=== PATIENT | female | born 1975 | race Caucasian/White ===

== ENCOUNTER 2018-01-20 14:09 | Emergency (ER) | payer OTHER ==
[~2018-01-20] VITALS: Ht 167.6 cm; Wt 88.5 kg
[~2018-01-20 14:09] MED LIST: DESPEC-DM TABL1 EACH PO; NASONEX17 GM NS
== END 2018-01-20 18:42 | disposition home or self-care (01) ==
LOC: ER 14:09
DX: M94.0 Chondrocostal junction syndrome [Tietze] (principal); R07.89 Other chest pain

== ENCOUNTER 2018-07-30 14:14 | Emergency (ER) | payer OTHER ==
[~2018-07-30] VITALS: Ht 167.6 cm; Wt 90.7 kg
== END 2018-07-30 17:22 | disposition home or self-care (01) ==
LOC: ER 14:14
DX: B34.9 Viral infection, unspecified (principal)

== ENCOUNTER 2020-03-01 13:20 | Emergency (ER) | payer OTHER ==
[~2020-03-01] VITALS: Ht 167.6 cm; Wt 81.6 kg
== END 2020-03-01 16:44 | disposition home or self-care (01) ==
LOC: ER 13:20
DX: R07.89 Other chest pain (principal); F41.0 Panic disorder [episodic paroxysmal anxiety]; F43.8 Other reactions to severe stress

== ENCOUNTER 2022-04-26 18:45 | Emergency (ER) | payer OTHER ==
[~2022-04-26] VITALS: Ht 167.6 cm; Wt 90.7 kg
== END 2022-04-26 22:38 | disposition home or self-care (01) ==
LOC: ER 18:45
DX: N39.0 Urinary tract infection, site not specified (principal)